=== PATIENT | female | born 2000 | race Two or more races ===

== ENCOUNTER 2023-07-25 22:15 | Emergency (ER) | payer MEDICAID, OTHER ==
[~2023-07-25] VITALS: Ht 152.4 cm; Wt 72.0 kg
[2023-07-25 23:19] LABS: Basophils # (auto) 0 10 ^3/uL (0-0.2); Basophils % (auto) 0.2 % (0.0-2.0); Eosinophils # (auto) 0.1 10 ^3/uL (0-0.8); Eosinophils % (auto) 1.1 % (0.0-7.0); Hematocrit 39.7 % (36.0-46.0); Hemoglobin 13.7 g/dL (12.2-16.2); Lymphocytes # (auto) 2.7 10 ^3/uL (0.4-5.4); Lymphocytes % (auto) 23.4 % (10.0-50.0); Mean Corpuscular Hemoglobin 29.9 pg (28.0-32.0); Mean Corpuscular Hgb Conc. 34.4 g/dL (32.0-36.0); Mean Corpuscular Volume 86.8 fL (80.0-100.0); Monocytes # (auto) 0.8 10 ^3/uL (0-1.3); Monocytes % (auto) 7.1 % (0.0-12.0); Neutrophils # (auto) 7.8 10 ^3/uL (1.6-8.6); Neutrophils % (auto) 68.2 % (37.0-80.0); Nucleated Red Blood Cells % 0.1 %; Red Blood Cells 4.58 10^6/uL (4.0-5.20); Red Cell Distribution Width 14.1 % (11.8-14.3); White Blood Cell 11.4 10^3/uL (4.4-10.8)
[2023-07-25 23:37] LABS: Alanine Aminotransferase 31 U/L (7-40); Alkaline Phosphatase 115 U/L (46-116); Anion Gap 9 (5-15); Aspartate Aminotransferase 25 U/L (13-40); BUN/Creatinine Ratio 11.8 (10.0-20.0); Blood Urea Nitrogen 6 mg/dL (9-23); Carbon Dioxide 19 mmol/L (20-30); Chloride 107 mmol/L (98-107); Glucose 94 mg/dL (74-106); Potassium 3.7 mmol/L (3.5-5.1); Sodium 135 mmol/L (136-145)
[2023-07-25 23:38] LABS: Bilirubin, Total 0.2 mg/dL (0.2-1.0); Total Protein 7.1 g/dL (5.7-8.2)
[2023-07-26 07:09] VITALS: BP 102/63; PULSE 115; RESP 18; TEMP 98; O2SAT 96
[2023-07-26] MEDS: ACETAMINOPHEN 325 MG TAB PO ONE (07:14)
== END 2023-07-26 07:13 | disposition home or self-care (01) ==
LOC: ER 22:15 → EDBD 22:15 → ER 07-26 07:13
DX: O9A.212 Injury, poisoning and certain other consequences of external causes complicating pregnancy, second trimester (principal); R10.2 Pelvic and perineal pain; S30.1XXA Contusion of abdominal wall, initial encounter; Z3A.17 17 weeks gestation of pregnancy; V89.2XXA Person injured in unspecified motor-vehicle accident, traffic, initial encounter; Y93.89 Activity, other specified; Y92.89 Other specified places as the place of occurrence of the external cause; Y99.8 Other external cause status
CPT/HCPCS: 36415; 76805; 80053; 84702; 85025; 86901